=== PATIENT | male | born 1970 | race Caucasian/White ===

== ENCOUNTER → 2016-10-06 | Outpatient (CLI) | payer OTHER | LOC: RAD 16:00 | PROVIDERS: ATTEND Physician Assistant | DX: M79.631 Pain in right forearm (principal) ==

== ENCOUNTER → 2017-08-18 | Outpatient (CLI) | payer OTHER ==
--- NOTE | 2017-08-19 14:27 | XCELERA REPORT ---
[address] [address] Transthoracic Echocardiogram Report Name: SHANA TALAMANTES Age: 47 yrs Gender: Male : 1970 Patient Status: Outpatient Patient Location: Study Date: 08/18/2017 03:01 PM Height: 67 in Weight: 206 lb BSA: 2.0 m2 Procedure: A two-dimensional transthoracic echocardiogram with color flow and Doppler was performed. The study was technically difficult with many images being suboptimal in quality. Reason For Study: TACHYCARDIA History: TACHYCARDIA. Ordering Physician: ELKIN DE LA CRUZ Performed By: Denisse Dillon Interpretation Summary The left ventricle is normal in size. There is normal left ventricular wall thickness. LV EF is 65% Left ventricular systolic function is normal. Doppler measurements suggest normal left ventricular diastolic function The left ventricular wall motion is normal. There is no thrombus. There is no ventricular septal defect visualized. The right ventricle is normal in size and function. The right atrium is normal. The left atrial size is normal. The interatrial septum is intact with no evidence for an atrial septal defect. There is no evidence of mitral valve prolapse. There is no vegetation seen on the mitral valve. There is no mitral valve stenosis. There is no mitral regurgitation noted. There is no aortic valve stenosis There is no LVOT obstruction. No aortic regurgitation is present. There is no tricuspid stenosis. No tricuspid regurgitation. Unable to calculate RVSP due to insufficient TR jet. There is no pericardial effusion. MMode/2D Measurements & Calculations RVDd: 2.7 cm LVIDd: 4.3 cm FS: 36.3 % Ao root diam: 3.2 cm IVSd: 1.0 cm LVIDs: 2.7 cm EDV(Teich): 82.0 ml LVPWd: 0.96 cmESV(Teich): 27.6 ml Ao root area: 8.2 cm2 EF(Teich): 66.3 % LA dimension: 3.3 cm LVOT diam: 2.3 cm LVOT area: 4.2 cm2 Doppler Measurements & Calculations MV E max christine: MV P1/2t max christine: Ao V2 max: LV V1 max P.7 cm/sec 50.9 cm/sec 102.3 cm/sec 3.0 mmHg MV A max christine: MV P1/2t: 67.9 msec Ao max PG: LV V1 max: 54.3 cm/sec MVA(P1/2t): 3.2 cm2 4.2 mmHg 86.4 cm/sec MV E/A: 0.91 MV dec slope: TAMIKA(V,D): 3.5 cm2 219.7 cm/sec2 PA V2 max: 72.5 cm/sec PA max P.1 mmHg Left Ventricle The left ventricle is normal in size. There is normal left ventricular wall thickness. LV EF is 65%. Left ventricular systolic function is normal. Doppler measurements suggest normal left ventricular diastolic function. The left ventricular wall motion is normal. There is no thrombus. There is no ventricular septal defect visualized. Right Ventricle The right ventricle is normal in size and function. Atria The right atrium is normal. The left atrial size is normal. The interatrial septum is intact with no evidence for an atrial septal defect. Mitral Valve There is no evidence of mitral valve prolapse. There is no vegetation seen on the mitral valve. There is no mitral valve stenosis. There is no mitral regurgitation noted. Aortic Valve There is no aortic valvular vegetation. There is no aortic valve stenosis. There is no LVOT obstruction. No aortic regurgitation is present. Tricuspid Valve There is no tricuspid stenosis. No tricuspid regurgitation. Unable to calculate RVSP due to insufficient TR jet. Pulmonic Valve There is no pulmonic valvular stenosis. There is no pulmonic valvular regurgitation. Great Vessels The aortic root is normal size. Effusions There is no pericardial effusion. : ELKIN DE LA CRUZ > Marion Soriano
== END ==
LOC: SP 14:54
PROVIDERS: ATTEND Family Medicine
DX: R00.0 Tachycardia, unspecified (principal)
CPT/HCPCS: 93306

== ENCOUNTER 2019-04-06 22:04 | Emergency (ER) | payer OTHER ==
[2019-04-07 01:44] LABS: ABSOLUTE EOSINOPHILS # (AUTO) 0.1 10^3/uL (0.0-0.6); ABSOLUTE LYMPHOCYTES (AUTO) 2.2 10^3/uL (0.5-4.7); ABSOLUTE MONOCYTES (AUTO) 0.5 10^3/uL (0.1-1.4); BASOPHILS % (AUTO) 0.4 % (0-2); EOSINOPHILS % (AUTO) 0.6 % (0-6); HEMATOCRIT 46.4 % (37.9-51.0); HEMOGLOBIN 15.5 g/dL (13.5-17.0); LYMPHOCYTES % (AUTO) 24.7 % (13-45); MEAN CORPUSCULAR HEMOGLOBIN 27.5 pg (27.0-33.4); MEAN CORPUSCULAR HGB CONC 33.4 g/dL (32.0-36.0); MEAN CORPUSCULAR VOLUME 82 fl (80-97); MONOCYTES % (AUTO) 5.5 % (3-13); PLATELET COUNT 271 10^3/uL (150-450); RED BLOOD COUNT 5.63 10^6/uL (4.35-5.55); RED CELL DISTRIBUTION WIDTH 13.8 % (11.5-14.0); SEGMENTED NEUTROPHILS % (AUTO) 68.8 % (42-78); TOTAL CELLS COUNTED % (AUTO) 100 %; WHITE BLOOD COUNT 8.7 10^3/uL (4.0-10.5)
[2019-04-07 02:01] LABS: ALANINE AMINOTRANSFERASE 36 U/L (21-72); ALBUMIN 4.4 g/dL (3.5-5.0); ALKALINE PHOSPHATASE 108 U/L (38-126); ANION GAP 13 (5-19); ASPARTATE AMINO TRANSFERASE 26 U/L (17-59); BILIRUBIN,DIRECT 0.2 mg/dL (0.0-0.4); BILIRUBIN,TOTAL 0.8 mg/dL (0.2-1.3); BLOOD UREA NITROGEN 17 mg/dL (7-20); CALCIUM 9.3 mg/dL (8.4-10.2); CARBON DIOXIDE 22 mmol/L (22-30); CHLORIDE 102 mmol/L (98-107); CREATINE KINASE 84 U/L (55-170); GLUCOSE 122 mg/dL (75-110); POTASSIUM 4.5 mmol/L (3.6-5.0); SODIUM 137.3 mmol/L (137-145); TOTAL PROTEIN 7.8 g/dL (6.3-8.2)
[2019-04-07 02:14] LABS: CREATINE KINASE MB 0.23 ng/mL (<4.55)
[2019-04-07 02:15] LABS: TROPONIN I < 0.012 ng/mL
[2019-04-07] MEDS ORDERED: NORMAL SALINE 1000 ML 1,000 ML IV ONE (02:56)
--- NOTE | 2019-04-07 03:01 | ER Document Report ---
ED General - General Chief Complaint: Irregular Pulse Stated Complaint: BLOOD PRESSURE ISSUES Time Seen by Provider: 04/07/19 02:29 Primary Care Provider: ELKIN DE LA CRUZ MD [Primary Care Provider] - Follow up as needed Notes: Patient is a 48 year old male that comes emergency department for chief complaint of rapid heartbeat. He states that during the afternoon he kept feeling his heart rate elevating. At one point he felt lightheaded as well. He denies chest pain, shortness of breath, vomiting. 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 He states he felt like he was getting heatstroke. He denies muscle cramps. He states he had this 1 time before a few years ago but has not felt the same way since. He does admit to caffeine earlier. He denies tobacco, alcohol, recreational drugs. Past medical history of hypertension, type 2 diabetes, hyperlipidemia, medicated. He takes lisinopril but no beta-blockers. TRAVEL OUTSIDE OF THE [place] IN LAST 30 DAYS: No - Related Data Allergies/Adverse Reactions: clindamycin Allergy (Verified 04/07/19 03:24) Past Medical History - General Information source: Patient - Social History Smoking Status: Never Smoker Frequency of alcohol use: None Drug Abuse: None Lives with: Spouse/Significant other Family History: Reviewed & Not Pertinent - Past Medical History Cardiac Medical History: Reports: Hx Hypercholesterolemia, Hx Hypertension Endocrine Medical History: Reports: Hx Diabetes Mellitus Type 2 - Immunizations Immunizations up to date: Yes Hx Diphtheria, Pertussis, Tetanus Vaccination: Yes Review of Systems - Review of Systems Constitutional: See HPI EENT: No symptoms reported Cardiovascular: See HPI Respiratory: No symptoms reported Gastrointestinal: No symptoms reported Genitourinary: No symptoms reported Male Genitourinary: No symptoms reported Musculoskeletal: No symptoms reported Skin: No symptoms reported Hematologic/Lymphatic: No symptoms reported Neurological/Psychological: No symptoms reported Physical Exam - Vital signs Vitals: Temp Pulse Resp BP Pulse Ox 98.0 F 119 H 15 140/102 H 97 04/06/19 23:09 04/06/19 23:09 04/06/19 23:09 04/06/19 23:09 04/06/19 23:09 - Notes Notes: GENERAL: Alert, interacts well. No acute distress. HEAD: Normocephalic, atraumatic. EYES: Pupils equal, round, and reactive to light. Extraocular movements intact. ENT: Oral mucosa moist, tongue midline. Oropharynx unremarkable. Airway patent. LUNGS: Clear to auscultation bilaterally, no wheezes, rales, or rhonchi. No respiratory distress. HEART: Regular rate and rhythm, no murmur. ABDOMEN: Soft, non-tender. Non-distended. Bowel sounds present in all 4 quadrants. GENITOURINARY: Deferred EXTREMITIES: Moves all 4 extremities spontaneously. No edema, normal radial and dorsalis pedis pulses bilaterally. No cyanosis. BACK: no cervical, thoracic, lumbar midline tenderness. No saddle anesthesia, normal distal neurovascular exam. Moves all extremities in full range of motion. NEUROLOGICAL: Alert and oriented x3. Normal speech. Cranial nerves II through XII grossly intact. PSYCH: Normal affect, normal mood. SKIN: Warm, dry, normal turgor. No rashes or lesions noted. Course - Re-evaluation Re-evalutation: On my evaluation patient looks very well. He is not tachycardic, he denies any current symptoms. He ambulates without lightheadedness. Tachycardia has resolved. Monitoring on the site monitor does not show concerning abnormality. CBC, chemistry, CK, magnesium, troponin, TSH are all unremarkable. EKG unremarkable. Patient has received IV fluids. No current symptoms. No rhabdomyolysis. No syncope. Denies chest pain. Blood pressure unremarkable. Patient is taking his home medications. He states he feels much better after his evaluation and treatment. Suspect dehydration and overheating component because of his benign evaluation and work-up. Patient will be provided with a work note for tomorrow, discussed primary care and cardiology follow-up, discussed return precautions. Patient states satisfaction agreement. Stable time of discharge. - Vital Signs Vital signs: Temp Pulse Resp BP Pulse Ox 97.4 F 119 H 17 122/83 96 04/07/19 04:45 04/06/19 23:09 04/07/19 04:38 04/07/19 04:38 04/07/19 04:38 - Laboratory Result Diagrams: 04/07/19 01:35 04/07/19 01:35 Laboratory results interpreted by me: 04/07/19 04/07/19 01:35 01:35 RBC 5.63 H Glucose 122 H - EKG Interpretation by Me Additional EKG results interpreted by me: EKG shows sinus rhythm at a rate of 100, QTC of 423, W[place] interval of 152. No T wave inversions or ST segment changes in consecutive leads. Normal axis. Discharge - Discharge Clinical Impression: Tachycardia, Near syncope Condition: Stable Disposition: HOME, SELF-CARE Additional Instructions: Your symptoms are most suggestive of heat exhaustion. You have been rehydrated. Continue your current medications, follow-up with your primary care provider for additional evaluation and management including possible cardiology referral because of the near syncopal episode and tachycardia today. Avoid caffeine, drink plenty of fluids. Return if you worsen including chest pain, passing out, vomiting, or any other concerning or worsening symptoms. Forms: Return to Work Referrals: ELKIN DE LA CRUZ MD [Primary Care Provider] - Follow up as needed
[2019-04-07 04:40] VITALS: BP 122/83
--- NOTE | 2019-04-07 22:45 | EKG REPORT ---
SEVERITY:- BORDERLINE ECG - SINUS TACHYCARDIA BORDERLINE T ABNORMALITIES, INFERIOR LEADS : Confirmed by: Marion Soriano MD 07-Apr-2019 22:45:16
== END 2019-04-07 04:45 | disposition home or self-care (01) ==
LOC: ER 22:04
DX: R00.2 Palpitations (principal); R42 Dizziness and giddiness; I10 Essential (primary) hypertension; E11.9 Type 2 diabetes mellitus without complications
CPT/HCPCS: 93005; 99285; 96360; 36415; 82553; 82550; 83735; 84443; 85025; 80053; 84484; 93010; J7030

== ENCOUNTER 2019-09-23 16:04 | Emergency (ER) | payer OTHER ==
[2019-09-23] MEDS ORDERED: DIPH/PERTUSS(ACELL)/TETANUS VAC/PF 0.5 ML SYR (>=10YO) IM ONE (16:58)
--- NOTE | 2019-09-23 17:01 | ER Document Report ---
ED Medical Screen (RME) - General Chief Complaint: Laceration Stated Complaint: LACERATION/FOREHEAD Time Seen by Provider: 09/23/19 16:54 Primary Care Provider: ELKIN DE LA CRUZ MD [Primary Care Provider] - Follow up as needed TRAVEL OUTSIDE OF THE [place] IN LAST 30 DAYS: No - HPI Notes: 09/23/19 16:58 Patient is a 49-year-old male no significant past medical history presents comp laining of head injury and laceration to the forehead status post injury at 2 AM last night. Patient states that he tripped walking in his yard and hit a rn critical care stone. He did not lose consciousness or have any nausea/vomiting. Patient states he has a mild headache currently, but is otherwise feeling well. This is not the worst headache of his life. He has been able to eat and drink without difficulty. He is urinating normally. I have treated and performed a rapid initial assessment of this patient. A comprehensive ED assessment and evaluation of the patient, analysis of test results and completion of medical decision making process will be conducted by additional ED providers. PHYSICAL EXAMINATION: GENERAL: Well-appearing, well-nourished and in no acute distress. A&Ox4. Answers questions appropriately. Head: there is a large irregular superficial laceration/flap lacs noted to the forehead that will need irrigated and more thoroughly investigated. No hematoma. No lobo sign. Eyes: no raccoon eyes or orbital tenderness Neuro: cranial nerves grossly intact. NIH 0. GCS 15 Ears: no hemotympanum - Related Data Allergies/Adverse Reactions: clindamycin Allergy (Verified 04/07/19 03:24) Home Medications: tricor Past Medical History - Social History Frequency of alcohol use: Rare Drug Abuse: None - Past Medical History Cardiac Medical History: Reports: Hx Hypercholesterolemia, Hx Hypertension Endocrine Medical History: Reports: Hx Diabetes Mellitus Type 2 Renal/ Medical History: Denies: Hx Peritoneal Dialysis - Immunizations Immunizations up to date: Yes Hx Diphtheria, Pertussis, Tetanus Vaccination: Yes Physical Exam - Vital signs Vitals: Temp Pulse Resp BP Pulse Ox 98.6 F 98 16 148/84 H 96 09/23/19 16:12 09/23/19 16:12 09/23/19 16:12 09/23/19 16:12 09/23/19 16:12 Course - Vital Signs Vital signs: Temp Pulse Resp BP Pulse Ox 98.6 F 98 16 148/84 H 96 09/23/19 16:12 09/23/19 16:12 09/23/19 16:12 09/23/19 16:12 09/23/19 16:12 Doctor's Discharge - Discharge Referrals: ELKIN DE LA CRUZ MD [Primary Care Provider] - Follow up as needed
[2019-09-23] MEDS ORDERED: LIDOCAINE 1% INJ-PF (10 MG/ML) 30 ML SDV INJ ONE (19:34)
--- NOTE | 2019-09-23 20:00 | ER Document Report ---
HPI - HPI Time Seen by Provider: 09/23/19 16:54 Pain Level: Denies Context: Patient is a 49-year-old male with a history of type 2 diabetes who presents the emergency department with a chief complaint of head injury. Patient reports around 2 AM last night he was hanging out with some buddies in his backyard when he tripped over a conveyor tender concrete mixing plant. Patient reports he did fall onto another conveyor tender concrete mixing plant and landed on his forehead. Patient reports he did not have a loss of consciousness. Patient denies vomiting. Patient reports he does have a mild headache. Patient denies use of blood thinners. Patient reports he did initially clean the wound and a applied a dressing. Patient denies any other injury during the fall and denies neck pain. Past Medical History - General Information source: Patient - Social History Smoking Status: Never Smoker Frequency of alcohol use: Rare Drug Abuse: None Lives with: Family Family History: Reviewed & Not Pertinent Patient has suicidal ideation: No Patient has homicidal ideation: No - Past Medical History Cardiac Medical History: Reports: Hx Hypercholesterolemia, Hx Hypertension Pulmonary Medical History: Reports: None EENT Medical History: Reports: None Neurological Medical History: Reports: None Endocrine Medical History: Reports: Hx Diabetes Mellitus Type 2 Renal/ Medical History: Reports: None. Denies: Hx Peritoneal Dialysis Malignancy Medical History: Reports None GI Medical History: Reports: None Musculoskeletal Medical History: Reports None Skin Medical History: Reports None Psychiatric Medical History: Reports: None Traumatic Medical History: Reports: None Infectious Medical History: Reports: None Surgical Hx: Negative - Immunizations Immunizations up to date: Yes Hx Diphtheria, Pertussis, Tetanus Vaccination: Yes Vertical Provider Document - CONSTITUTIONAL Agree With Documented VS: Yes Exam Limitations: No Limitations General Appearance: No Apparent Distress - INFECTION CONTROL TRAVEL OUTSIDE OF THE [place] IN LAST 30 DAYS: No - HEENT HEENT: Normocephalic Notes: Patient does have ecchymosis noted to the left eye. There is not appear to be any eye involvement bilaterally. PERRLA. Patient's forehead has multiple superficial lacerations and abrasions. There is a linear horizontal 1.5 cm laceration noted to the mid forehead with multiple surrounding skin flaps. No active bleeding. - NECK Neck: Normal Inspection - RESPIRATORY Respiratory: Breath Sounds Normal, No Respiratory Distress - CARDIOVASCULAR Cardiovascular: Regular Rate, Regular Rhythm - GI/ABDOMEN Gastrointestinal: Abdomen Soft, Abdomen Non-Tender, Normal Bowel Sounds - BACK Notes: No cervical, thoracic or lumbar midline tenderness. - MUSCULOSKELETAL/EXTREMETIES Musculoskeletal/Extremeties: FROM - NEURO Level of Consciousness: Awake, Alert, Appropriate - DERM Integumentary: Warm Course - Vital Signs Vital signs: Temp Pulse Resp BP Pulse Ox 98.6 F 98 16 148/84 H 96 09/23/19 16:12 09/23/19 16:12 09/23/19 16:12 09/23/19 16:12 09/23/19 16:12 Procedures - Laceration/Wound Repair Mid- Head Time completed: 20:00 Wound length (cm): 1.5 Wound's Depth, Shape: Superficial, Linear Laceration pre-procedure: Sterile PPE donned Anesthetic type: 1% Lidocaine Volume Anesthetic (mLs): 3 Wound explored: Clean Irrigated w/ Saline (mLs): 150 Wound Repaired With: Sutures Suture Size/Type: 5:0, Ethilon Number of Sutures: 3 Layer Closure?: No Complications: No Adult Head Front/Back picture: 1 - 1.5 cm horizontal linear laceration noted. 2 - Superficial abrasions with no active bleeding. 3 - Two skin flaps that are superficial noted. Discharge - Discharge Clinical Impression: Head injury Qualifiers: Encounter type: initial encounter Qualified Code(s): S09.90XA - Unspecified injury of head, initial encounter Abrasion head Qualifiers: Encounter type: initial encounter Qualified Code(s): S00.91XA - Abrasion of unspecified part of head, initial encounter Laceration of head Qualifiers: Encounter type: initial encounter Location of open wound of head: scalp Foreign body presence: without foreign body Qualified Code(s): S01.01XA - Laceration without foreign body of scalp, initial encounter Condition: Stable Disposition: HOME, SELF-CARE Instructions: Tetanus Immunization Given ([facility]), Laceration Care ([facility]), Prophylactic Antibiotic ([facility]), Antibiotic Ointment Protection ([facility]), Soap Cleansing ([facility]) Additional Instructions: *Today was seen in the emergency department after obtaining a laceration to your forehead. The wound was cleaned vigorously and irrigated with saline. You did require 3 sutures. The other parts of the wound are superficial abrasions. The Steri-Strips have been placed to bring together parts of the wound but not to fully close it as you cannot close this type of an abrasion. The Steri-Strips will fall off on their own. I am giving you an oral antibiotic as a prophylaxis due to the injury to the face. Please monitor for signs of infection. Please return to the emergency department if you have any signs of increased swelling, redness, drainage. Please seek medical attention in 5 days to have the sutures removed. LACERATION CARE: Your laceration has been sutured to keep the skin edges aligned during healing. The time of suture removal depends on the nature and location of your cut. Please follow the care instructions the doctor has outlined for you and return for further care, according to the schedule you've been given. Keep the wound and dressing clean. Unless you were told otherwise, you may shower daily, blotting the wound dry with a clean, unused towel. At other times, If the dressing gets wet or blood soaked, remove it and blot the wound dry, then reapply a new dressing. Unless you were instructed otherwise, dressings should be changed at least daily. If any signs of infection occur (swelling, redness, drainage, increasing tenderness, red streaks, tender lumps in the armpit or groin above the laceration, or fever), see the doctor immediately. SOAP CLEANSING: Gently wash the wound daily using a mild soap (like Ivory, Phisoderm, Neutrogena). Use warm water, rubbing gently until all debris, ooze, and crusting have been washed from the wound. Allow to dry briefly (about 10 minutes) after cleaning. Repeat this cleansing at least three times a day for the first two days and then once or twice a day. ANTIBIOTIC OINTMENT PROTECTION: Your wounds are such that dressing them is not practical or optional. After cleansing, you should apply a thin coating of antibiotic ointment (Bacitracin, not Neosporin) to the wounds at least three times daily. This lessens infection risk, and may decrease the amount of scarring. Use a q-tip or dull butter knife, not your finger, to apply this ointment. Any debris or ooze which builds up in the ointment should be gently rubbed off with a sterile gauze pad. Harder crusting may need to be gently scrubbed off with a clean wash cloth with soap and warm water, perhaps applying a warm, w et wash cloth to the wound for ten minutes first. Development of redness, severe itching, or blistering may mean allergy to the ointment. See the doctor. TETANUS IMMUNIZATION GIVEN: You have been given an immunization against tetanus. Please record this in your records. In general, a booster is needed only once every 10 years. The tetanus shot protects against tetanus or "lockjaw," which is a complication of certain wound infections (the tetanus shot cannot protect against the actual infection). The immunization site may become warm and red due to local reaction. If this occurs, apply warm compresses and take aspirin or ibuprofen to reduce inflammation and discomfort. Return for evaluation if the reaction becomes severe. PROPHYLACTIC ANTIBIOTIC: The antibiotics which have been prescribed are designed to decrease the risk of infection. Only certain types of wounds benefit from this -- the typical cut, scrape, or burn DOES NOT require antibiotics. Of course, infection can still occur despite the use of prophylactic antibiotics. Your wound will heal with less chance of an infectious complication if you take the medication as directed. The most important dose is the FIRST dose, so don't delay filling the prescription! FOLLOW-UP CARE: Your sutures should be removed in __5__ days. To facilitate a timely removal of your sutures, you may return to the Emergency Department at [facility]. You do not need to call for an appointment, but the best time to come in for suture removal is early in the morning. If you have been referred to another physician for follow-up care, call that physicians office for an appointment as you were instructed. If you experience a significant change in your laceration, or if you are concerned there may be an infection (swelling, redness, drainage, increasing tenderness, red streaks, tender lumps in the armpit or groin above the laceration, or fever), return to the Emergency Department immediately re-evaluation. Prescriptions: Cephalexin Monohydrate [Keflex 500 mg Capsule] 500 mg PO Q6H 5 Days capsule Referrals: ELKIN DE LA CRUZ MD [Primary Care Provider] - Follow up as needed
[2019-09-23 20:22] VITALS: BP 151/93
== END 2019-09-23 20:26 | disposition home or self-care (01) ==
LOC: ER 16:04
PROC: 0HQ1XZZ Repair Face Skin, External Approach (ICD-10-PCS; principal; 2019-09-23)
DX: S09.90XA Unspecified injury of head, initial encounter (principal); S00.91XA Abrasion of unspecified part of head, initial encounter; S01.01XA Laceration without foreign body of scalp, initial encounter; R51 Headache; W18.09XA Striking against other object with subsequent fall, initial encounter; I10 Essential (primary) hypertension; E11.9 Type 2 diabetes mellitus without complications
CPT/HCPCS: 90471; 90715; 99282

== ENCOUNTER 2019-09-28 06:25 | Emergency (ER) | payer OTHER ==
--- NOTE | 2019-09-28 08:14 | ER Document Report ---
HPI - HPI Patient complains to provider of: Suture removal Time Seen by Provider: 09/28/19 08:10 Onset: Other Pain Level: 0 Context: 49-year-old male presents emergency department with suture removal to the middle of his forehead. Reports he fell a couple days when he was drinking and is here for suture removal. He denies fever. Denies pain. The site is benign looking Associated Symptoms: None Exacerbated by: Denies Relieved by: Denies Similar symptoms previously: No Recently seen / treated by doctor: No - CONSTITUTIONAL Constitutional: DENIES: Fever, Chills - NEURO Neurology: DENIES: Headache Past Medical History - General Information source: Patient - Social History Smoking Status: Never Smoker Frequency of alcohol use: Occasional Family History: Reviewed & Not Pertinent Patient has suicidal ideation: No Patient has homicidal ideation: No - Past Medical History Cardiac Medical History: Reports: Hx Hypercholesterolemia, Hx Hypertension Endocrine Medical History: Reports: Hx Diabetes Mellitus Type 2 Renal/ Medical History: Denies: Hx Peritoneal Dialysis - Immunizations Immunizations up to date: Yes Hx Diphtheria, Pertussis, Tetanus Vaccination: Yes Vertical Provider Document - CONSTITUTIONAL Agree With Documented VS: Yes Exam Limitations: No Limitations General Appearance: WD/WN, No Apparent Distress - INFECTION CONTROL TRAVEL OUTSIDE OF THE [place] IN LAST 30 DAYS: No - HEENT HEENT: Atraumatic - NECK Neck: Supple - RESPIRATORY Respiratory: No Respiratory Distress - CARDIOVASCULAR Cardiovascular: Regular Rate - NEURO Level of Consciousness: Awake, Alert, Appropriate Motor/Sensory: No Motor Deficit - DERM Integumentary: Warm, Dry Adult Front & Back Diagram: 1 - 3 sutures intact site benign erythema no swelling no discharge Course - Re-evaluation Re-evalutation: 09/28/19 08:40 Patient was instructed on suture removal. Also instructed to monitor the site for signs of infection. He verbalized understanding to all instructions. - Vital Signs Vital signs: Temp Pulse Resp BP Pulse Ox 97.9 F 80 20 146/88 H 98 09/28/19 06:30 09/28/19 06:30 09/28/19 06:30 09/28/19 06:30 09/28/19 06:30 Discharge - Discharge Clinical Impression: Visit for suture removal Condition: Stable Disposition: HOME, SELF-CARE Instructions: Suture Removal Additional Instructions: *You have been treated for suture removal *Monitor the site for signs of infection such as increasing pain, redness, swelling, warmth *Keep the area clean *Follow up with a primary care provider in 1 week for recheck *Return to ED for signs of infection, worsening condition, changes, needs Referrals: ELKIN DE LA CRUZ MD [Primary Care Provider] - Follow up in 1 week
[2019-09-28 08:24] VITALS: BP 131/87
== END 2019-09-28 08:15 | disposition home or self-care (01) ==
LOC: ER 06:25
DX: Z48.02 Encounter for removal of sutures (principal); I10 Essential (primary) hypertension; E11.9 Type 2 diabetes mellitus without complications
CPT/HCPCS: 99281

== ENCOUNTER 2020-01-12 23:31 | Emergency (ER) | payer OTHER ==
--- NOTE | 2020-01-12 23:48 | ER Document Report ---
ED General - General Chief Complaint: Chest Pressure Stated Complaint: CHEST PRESSURE, COUGH Time Seen by Provider: 01/12/20 23:34 Primary Care Provider: ELKIN DE LA CRUZ MD [Primary Care Provider] - Follow up as needed Mode of Arrival: Ambulatory Information source: Patient Notes: 49-year-old male arrives with chief complaint of 45-day history of anterior chest tightness which is worsened when he bends over forwards and improves when he is in a hot shower that is steamy. He has had a dry cough nonproductive for several days. He denies any sore throat rhinorrhea cephalgia. He does admit to having anxiety in the past and the family is positive for hypertension. Patient does have diabetes type 2. 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 He denies being around anyone with active COVID-19 symptoms. He denies any cephalgia nuchal rigidity skin lesions diarrhea constipation dysuria fever chills. TRAVEL OUTSIDE OF THE [place] IN LAST 30 DAYS: No - HPI Onset: Other - x 4-5 days Onset/Duration: Persistent, Worse Quality of pain: Fullness, Pressure Severity: Moderate Pain Level: 3 Associated symptoms: Shortness of breath Exacerbated by: Movement Relieved by: Other - hot steamy baths - Related Data Allergies/Adverse Reactions: clindamycin Allergy (Verified 09/28/19 08:09) Past Medical History - General Information source: Patient - Social History Smoking Status: Never Smoker Cigarette use (# per day): No Chew tobacco use (# tins/day): No Smoking Education Provided: No Frequency of alcohol use: Occasional Drug Abuse: None Lives with: Family Family History: Reviewed & Not Pertinent Patient has suicidal ideation: No Patient has homicidal ideation: No - Past Medical History Cardiac Medical History: Reports: Hx Hypercholesterolemia, Hx Hypertension Endocrine Medical History: Reports: Hx Diabetes Mellitus Type 2 Renal/ Medical History: Denies: Hx Peritoneal Dialysis - Immunizations Immunizations up to date: Yes Hx Diphtheria, Pertussis, Tetanus Vaccination: Yes Review of Systems - Review of Systems Constitutional: No symptoms reported EENT: No symptoms reported Cardiovascular: See HPI, Chest pain Respiratory: See HPI, Wheezing Gastrointestinal: No symptoms reported Genitourinary: No symptoms reported Male Genitourinary: No symptoms reported Musculoskeletal: No symptoms reported Skin: No symptoms reported Hematologic/Lymphatic: No symptoms reported Neurological/Psychological: No symptoms reported Physical Exam - Vital signs Vitals: Temp Pulse Resp BP Pulse Ox 97.9 F 92 20 175/95 H 98 01/12/20 23:37 01/12/20 23:37 01/12/20 23:37 01/12/20 23:37 01/12/20 23:37 Interpretation: Hypertensive - General General appearance: Alert - HEENT Head: Normocephalic, Atraumatic Eyes: Normal Pupils: PERRL - Respiratory Respiratory status: No respiratory distress Chest status: Nontender Breath sounds: Normal Chest palpation: Normal - Cardiovascular Rhythm: Regular Heart sounds: Normal auscultation Murmur: No - Abdominal Inspection: Normal Distension: No distension Bowel sounds: Normal Tenderness: Nontender Organomegaly: No organomegaly - Genitourinary Scrotum: Other - deferred - Back Back: Normal - Extremities General upper extremity: Normal inspection General lower extremity: Normal inspection - Neurological Neuro grossly intact: Yes Cognition: Normal Orientation: AAOx4 [place] Coma Scale Eye Opening: Spontaneous [place] Coma Scale Verbal: Oriented [place] Coma Scale Motor: Obeys Commands Georges Coma Scale Total: 15 Speech: Normal Motor strength normal: LUE, RUE, LLE, RLE Sensory: Normal - Psychological Associated symptoms: Normal affect - Skin Skin Temperature: Warm Skin Moisture: Dry Course - Vital Signs Vital signs: Temp Pulse Resp BP Pulse Ox 97.9 F 92 20 175/95 H 98 01/12/20 23:37 01/12/20 23:37 01/12/20 23:37 01/12/20 23:37 01/12/20 23:37 - Laboratory Result Diagrams: 01/13/20 00:15 01/13/20 00:15 Laboratory results interpreted by me: 01/13/20 01/13/20 01/13/20 00:15 00:15 00:15 RDW 14.5 H Sodium 134.0 L Glucose 112 H Urine Glucose (UA) >=500 H Urine Ketones TRACE H - Diagnostic Test Radiology reviewed: Reports reviewed - EKG Interpretation by Me EKG shows normal: Sinus rhythm Rate: Normal Critical Care Note - Critical Care Note Total time excluding time spent on procedures (mins): 90 Comments: I advised patient of the x-ray EKG and lab findings and of his blood pressure. Blood pressure I advised this patient to see Dr. Ruiz pumper gauger in office for further work-up Discharge - Discharge Clinical Impression: RAD type symptoms, Borderline hypertension Clinical Impression: (Ruled Out): Hypertension Condition: Good Disposition: HOME, SELF-CARE Additional Instructions: Take your blood pressure readings on a daily basis and document this on a calendar or other paper to present to Dr. Ruiz. Follow-up with Dr. Ruiz pumper gauger for further work-up ; only take medicines as directed as per Dr. De La Cruz and Dr. Ruiz encourage fluids and return to ER if symptoms persist or worsen Prescriptions: Lisinopril/Hydrochlorothiazide [Lisinopril-Hctz 20-25 mg Tab] 1 each PO DAILY #30 tablet Forms: Return to Work Referrals: ELKIN DE LA CRUZ MD [Primary Care Provider] - Follow up as needed
[2020-01-13 00:26] LABS: ABSOLUTE EOSINOPHILS # (AUTO) 0.1 10^3/uL (0.0-0.6); ABSOLUTE MONOCYTES (AUTO) 0.5 10^3/uL (0.1-1.4); ABSOLUTE NEUT (AUTO) 4.9 10^3/uL (1.7-8.2); BASOPHILS % (AUTO) 0.5 % (0-2); EOSINOPHILS % (AUTO) 0.8 % (0-6); HEMATOCRIT 43.8 % (37.9-51.0); HEMOGLOBIN 15.5 g/dL (13.5-17.0); LYMPHOCYTES % (AUTO) 26.3 % (13-45); MEAN CORPUSCULAR HEMOGLOBIN 28.6 pg (27.0-33.4); MEAN CORPUSCULAR HGB CONC 35.3 g/dL (32.0-36.0); MEAN CORPUSCULAR VOLUME 81 fl (80-97); PLATELET COUNT 302 10^3/uL (150-450); RED BLOOD COUNT 5.41 10^6/uL (4.35-5.55); RED CELL DISTRIBUTION WIDTH 14.5 % (11.5-14.0); SEGMENTED NEUTROPHILS % (AUTO) 65.4 % (42-78); TOTAL CELLS COUNTED % (AUTO) 100 %; WHITE BLOOD COUNT 7.5 10^3/uL (4.0-10.5)
[2020-01-13 00:31] LABS: APPEARANCE,URINE CLEAR; BILIRUBIN,URINE NEGATIVE (NEGATIVE); COLOR,URINE YELLOW; GLUCOSE, URINE >=500 mg/dL (NEGATIVE); KETONES,URINE TRACE mg/dL (NEGATIVE); LEUKOCYTE ESTERASE,URINE NEGATIVE (NEGATIVE); NITRITE,URINE NEGATIVE (NEGATIVE); PROTEIN,URINE NEGATIVE (NEGATIVE); URINE SPECIFIC GRAVITY 1.016; UROBILINOGEN,URINE NEGATIVE mg/dL (<2.0)
--- NOTE | 2020-01-13 00:47 | RADIOLOGY REPORT (SQ) ---
EXAM DESCRIPTION: XR CHEST 1 VIEW COMPLETED DATE/TME: 01/12/2020 23:49 CLINICAL HISTORY: 49 years, Male, tightness COMPARISON: None. NUMBER OF VIEWS: 1 TECHNIQUE: Portable chest LIMITATIONS: None. FINDINGS: The heart size is normal. Lungs are clear. No pneumothorax IMPRESSION: Negative chest copyright 2011 [employer]- All Rights Reserved
[2020-01-13 00:54] LABS: ALBUMIN 4.4 g/dL (3.5-5.0); ALKALINE PHOSPHATASE 123 U/L (38-126); ANION GAP 7 (5-19); ASPARTATE AMINO TRANSFERASE 30 U/L (17-59); BILIRUBIN,TOTAL 0.8 mg/dL (0.2-1.3); BLOOD UREA NITROGEN 14 mg/dL (7-20); CALCIUM 9.8 mg/dL (8.4-10.2); CARBON DIOXIDE 28 mmol/L (22-30); CHLORIDE 99 mmol/L (98-107); GLUCOSE 112 mg/dL (75-110); POTASSIUM 4.5 mmol/L (3.6-5.0); TOTAL PROTEIN 7.7 g/dL (6.3-8.2)
[2020-01-13 01:08] LABS: CREATINE KINASE MB 0.38 ng/mL (<4.55)
[2020-01-13 01:10] LABS: TROPONIN I < 0.012 ng/mL
[2020-01-13 01:42] VITALS: BP 124/83
--- NOTE | 2020-01-13 08:51 | EKG REPORT ---
SEVERITY:- BORDERLINE ECG - SINUS RHYTHM NONSPECIFIC ST-T CHANGES- INFERIOR LEADS : Confirmed by: Ramos Torres MD 13-Jan-2020 08:50:40
--- NOTE | 2020-01-13 20:50 | EKG REPORT ---
SEVERITY:- ABNORMAL ECG - INCOMPLETE ANALYSIS DUE TO MISSING DATA IN PRECORDIAL LEAD(S) SINUS TACHYCARDIA MULTIFORM VENTRICULAR PREMATURE COMPLEXES LOW VOLTAGE IN FRONTAL LEADS BORDERLINE T ABNORMALITIES, DIFFUSE LEADS : Confirmed by: Ramos Torres MD 13-Jan-2020 20:49:29
== END 2020-01-13 02:00 | disposition home or self-care (01) ==
LOC: ER 23:31
DX: I10 Essential (primary) hypertension (principal); R06.02 Shortness of breath; R07.9 Chest pain, unspecified; R05 Cough; F41.9 Anxiety disorder, unspecified; E11.9 Type 2 diabetes mellitus without complications; Z88.1 Allergy status to other antibiotic agents
CPT/HCPCS: 36415; 71045; 80053; 81001; 82553; 84484; 85025; 93005; 93010; 99285